=== PATIENT | female | born 1975 | race Hispanic/Latino ===

== ENCOUNTER 2023-07-25 15:21 | Emergency (ER) | payer OTHER ==
[~2023-07-25] VITALS: Ht 157.5 cm; Wt 61.2 kg
[2023-07-25 16:00] LABS: BASOPHILS # (AUTO) 0.04 K/uL (0.00-0.20); BASOPHILS % (AUTO) 0.3 % (0.0-5.0); EOSINOPHILS # (AUTO) 0.13 K/uL (0.00-0.70); EOSINOPHILS % (AUTO) 1.1 % (0.0-8.0); HEMATOCRIT 40.8 % (36-48); IMMATURE GRANULOCYTE ABSOLUTE 0.03 K/uL (0-1); LYMPHOCYTES # (AUTO) 1.6 K/uL (1.0-4.8); LYMPHOCYTES % (AUTO) 13.5 % (21.0-51.0); MEAN CORPUSCULAR HEMOGLOBIN 28.2 pg (27.0-33.0); MEAN CORPUSCULAR HGB CONC 34.1 g/dL (32.0-36.0); MEAN CORPUSCULAR VOLUME 82.8 fL (79-99); MONOCYTES # (AUTO) 0.5 K/uL (0.1-1.0); MONOCYTES % (AUTO) 4.2 % (3.0-13.0); NEUTROPHILS # (AUTO) 9.7 K/uL (1.8-7.7); NEUTROPHILS % (AUTO) 80.7 % (40.0-77.0); PLATELET COUNT (AUTO) 203 K/uL (130-400); RED BLOOD CELL COUNT(AUTO) 4.93 MIL/uL (4.00-5.50); WHITE BLOOD COUNT (AUTO) 12.1 K/uL (4.8-10.8)
[2023-07-25 16:10] LABS: CREATININE 0.9 mg/dL (0.5-1.5); POTASSIUM 4.1 mmol/L (3.5-5.1)
[2023-07-25 16:14] LABS: ALBUMIN 3.8 g/dL (3.5-5.0); BILIRUBIN,TOTAL 0.3 mg/dL (0.2-1.0)
[2023-07-25 16:18] LABS: APPEARANCE,URINE CLEAR (CLEAR); BILIRUBIN,URINE NEGATIVE (NEGATIVE); COLOR,URINE YELLOW (YELLOW); GLUCOSE, URINE (UA) NEGATIVE (NEGATIVE); KETONES,URINE 20 mg/dL (NEGATIVE); LEUKOCYTE ESTERASE ,URINE NEGATIVE Leu/uL (NEGATIVE); NITRATE,URINE NEGATIVE (NEGATIVE); OCCULT BLOOD,URINE NEGATIVE (NEGATIVE); PH,URINE 6.5 (5.0-8.0); PROTEIN,URINE 10 mg/dL (NEGATIVE); UROBILINOGEN,URINE 0.2 mg/dL (0.2-1.0)
[2023-07-25 16:41] LABS: ADD UA MICROSCOPIC YES
[2023-07-25 16:45] LABS: MUCUS,URINE RARE LPF (None Seen); SQUAMOUS EPITHELIAL CELL,UR RARE /HPF (0-2)
[2023-07-25] MEDS: PANTOPRAZOLE 40 MG/VIAL IVP ONE (21:49)
[2023-07-25] MEDS: 0.9%NACL 1000ML 1,000 ML IV ONE (21:49)
[2023-07-25] MEDS: ONDANSETRON 4MG INJ IVP ONE (21:49)
[2023-07-25] MEDS: KETOROLAC 30MG VIAL (30MG/ML) IVP ONE (21:50)
[2023-07-25] MEDS: ACETAMINOPHEN 325 MG TAB PO ONE (21:50)
[2023-07-25] MEDS: MORPHINE 2 MG SYG IVP ONE (21:51)
[2023-07-25] MEDS ORDERED: IOHEXOL-350 75 ML VIAL IV ONE (22:31)
[2023-07-26 00:55] VITALS: BP 95/55; PULSE 75; RESP 18; O2SAT 100
[2023-07-26] MEDS ORDERED: ACET-2079 PO (01:14)
[2023-07-26] MEDS ORDERED: ONDA-104 PO (01:14)
[2023-07-26] MEDS ORDERED: NAPR-1023 PO (01:14)
[2023-07-26] MEDS ORDERED: DICY20TA2 PO (01:14)
== END 2023-07-26 01:50 | disposition home or self-care (01) ==
LOC: EDH 15:21
DX: N83.292 Other ovarian cyst, left side (principal); R74.8 Abnormal levels of other serum enzymes; M43.00 Spondylolysis, site unspecified; Z98.890 Other specified postprocedural states
CPT/HCPCS: 99285; 74177; 76705; 96374; 96375; 96361; 80053; 83690; 85025; 87088; 81001; 81025; 36415; 76856; J2270; J7030; J2405; J1885; C9113; Q9967